=== PATIENT | female | born 1995 | race Caucasian/White ===

== ENCOUNTER 2016-06-20 09:49 | Emergency (ER) | payer MEDICAID, OTHER ==
[~2016-06-20] VITALS: Ht 165.1 cm; Wt 99.8 kg
[2016-06-20 09:56] VITALS: BP 144/70
--- NOTE | 2016-06-20 11:44 | NUR ---
PATIENT LEFT WITHOUT BEING SEEN BY DR. POWELL. NO FURTHER CARE PROVIDED FOR PATIENT.
== END 2016-06-20 11:44 | disposition left against medical advice (07) ==
LOC: MED 09:49
DX: J02.9 Acute pharyngitis, unspecified (principal); R50.9 Fever, unspecified; Z53.21 Procedure and treatment not carried out due to patient leaving prior to being seen by health care provider

== ENCOUNTER 2019-03-07 16:36 | Observation (INO) | payer MEDICAID, OTHER ==
[~2019-03-07] VITALS: Ht 170.2 cm; Wt 127.9 kg
[2019-03-07 16:41] VITALS: BP 134/95
--- NOTE | 2019-03-07 17:00 | NUR ---
STATES DEVELOPED SUDDEN ONSET LOWER ABDOMINAL PAIN/CRAMPING W/INTERMITTENT RADIAING PAIN TO BACK. STATES SHE RECENTLY TOOK A PREGANACY TEST WHICH CAME BACK POSITIVE. PT PT IS A0. HER LASTWAS NINE YEARS AGO AND WAS UNEVENTFUL. URINE OBTAINED AND DIPPPED FOR BHCG: POSITIVE. COMFORT MEASURES AND SUPPORTIVE CARE INITIATED. MSE COMPLETE. PT AGREES W/PLAN OF CARE.
--- NOTE | 2019-03-07 17:28 | NUR ---
LAB AT FOR BLOOD DRAW. NO FURTHER ORDERS AT THIS TIME.
[2019-03-07 17:30] LABS: BASOPHILS # (AUTO) 0.1 K/uL (0.00-0.22); BASOPHILS % (AUTO) 0.9 % (0.0-2.0); EOSINOPHILS # (AUTO) 0.2 K/uL (0-0.4); EOSINOPHILS % (AUTO) 2.4 % (0.0-4.0); HEMATOCRIT 34.8 % (36-48); HEMOGLOBIN 11.3 g/dL (12.0-16.0); LYMPHOCYTES # (AUTO) 1.4 K/uL (2.5-16.5); LYMPHOCYTES % (AUTO) 17.1 % (20.5-51.1); MEAN CORPUSCULAR HEMOGLOBIN 29 pg (27-31); MEAN CORPUSCULAR HGB CONC 32 g/dL (33-37); MEAN CORPUSCULAR VOLUME 88.3 fL (80-94); MONOCYTES # (AUTO) 0.4 K/uL (0.8-1.0); MONOCYTES % (AUTO) 5.2 % (1.7-9.3); NEUTROPHILS # (AUTO) 6.2 K/uL (1.8-7.7); NEUTROPHILS % (AUTO) 74.4 % (42.2-75.2); PLATELET COUNT (AUTO) 144 K/uL (140-450); RED BLOOD CELL COUNT(AUTO) 3.94 MIL/uL (4.20-5.40); RED CELL DISTRIBUTION WIDTH 13.9 % (11.6-13.7); WHITE BLOOD COUNT (AUTO) 8.3 K/uL (4.8-10.8)
[2019-03-07 17:30] LABS: APPEARANCE,URINE CLEAR (CLEAR); BILIRUBIN,URINE NEGATIVE (NEGATIVE); BLOOD, URINE TRACE-I (NEGATIVE); COLOR,URINE YELLOW (YELLOW); LEUKOCYTE ESTERASE ,URINE 1+ (NEGATIVE); NITRITE, URINE NEGATIVE (NEGATIVE); UGLUCOSE NEGATIVE (NEGATIVE)
--- NOTE | 2019-03-07 17:41 | NUR ---
ULTRASOUND AT BS.
[2019-03-07 17:49] LABS: RBC,URINE 0-5 /HPF (0-5)
--- NOTE | 2019-03-07 17:50 | NUR ---
ULTRASOUND REPORTED PT BEING 37WKS IUP WITH LOW AMNIOTIC FLUID; VERY POSSIBLE ACTIVE LABOR MD NOTIFIED, PT TO BE SEEN IN OB----- OB NURSE NOTIFIED; [facility] SRE[facility]HAR HERNANDEZ AND ELISE SMYTH
[2019-03-07 18:31] VITALS: BP 134/62
[2019-03-07] MEDS ORDERED: PREN-380 PO (18:41)
== END 2019-03-07 20:00 | disposition home or self-care (01) ==
LOC: MED 16:36 → MLD 17:50
PROVIDERS: ADMIT Obstetrics & Gynecology; ATTEND Obstetrics & Gynecology
DX: O62.9 Abnormality of forces of labor, unspecified (principal); O26.893 Other specified pregnancy related conditions, third trimester; R10.2 Pelvic and perineal pain; Z3A.38 38 weeks gestation of pregnancy; Z88.0 Allergy status to penicillin
CPT/HCPCS: 36415; 76805; 81001; 84702; 85025; 86900; 86901; 87086; 99284; G0378; Q0092

== ENCOUNTER 2019-03-08 04:25 | Inpatient (IN) | payer MEDICAID ==
[~2019-03-08] VITALS: Ht 170.2 cm; Wt 127.9 kg
[~2019-03-08 04:25] MED LIST: PREN-380 PO
[2019-03-08] MEDS ORDERED: TERBUTALINE 1 MG/ML VIAL SUBQ ONE (04:42)
[2019-03-08] MEDS ORDERED: LACTATED RINGERS 1,000 ML IV SCH (05:09)
[2019-03-08] MEDS ORDERED: NALBUPHINE 10 MG/ML AMP IVP PRN (05:10)
[2019-03-08] MEDS ORDERED: TERBUTALINE 1 MG/ML VIAL SUBQ SCH (05:20)
[2019-03-08] MEDS ORDERED: CLINDAMYCIN 900 MG in DEXTROSE 5% 100 ML IV SCH ×2 (05:30→13:00)
[2019-03-08 05:47] VITALS: BP 122/70
[2019-03-08] MEDS ORDERED: CLINDAMYCIN 900 MG/6 ML VIAL IV ONE (06:22)
[2019-03-08] MEDS: OXYTOCIN 20 UNITS in LACTATED RINGERS 1,000 ML IV SCH ×2 (06:45→22:40)
[2019-03-08 07:15] LABS: BARBITURATE, URINE NEG. ng/ml (NEG <=200); BENZODIAZEPINE, URINE NEG. ng/mL (NEG <=200); CANNABINOID, URINE POS. ng/mL (NEG <=50); COCAINE, URINE NEG. ng/mL (NEG <=300); OPIATE, URINE NEG. ng/mL (NEG <=2000); PHENCYCLIDINE SCREEN,URINE NEG. ng/mL (NEG <=25)
[2019-03-08 07:39] LABS: ALBUMIN 2.6 g/dL (3.4-5.0); ANION GAP 16.8 (8-16); CARBON DIOXIDE 20.2 mmol/L (21-32); CREATININE 0.7 mg/dL (0.6-1.3); TOTAL BILIRUBIN 0.3 mg/dL (0.0-1.0)
--- NOTE | 2019-03-08 08:22 | NUR ---
PATIENT HAS BEEN SCREENED AND CATEGORIZED LOW NUTRITION RISK. PATIENT WILL BE SEEN WITHIN 7 DAYS OF ADMISSION. 03/14/[address]
[2019-03-08] MEDS ORDERED: MORPHINE PRES FREE 10 MG/10 ML AMP IV ONE (10:28)
[2019-03-08] MEDS ORDERED: LEVOFLOXACIN 500 MG/D5W PREMIX 100 ML IV ONE (11:02)
[2019-03-08] MEDS ORDERED: KETOROLAC 30 MG/ML VIAL IVP PRN (11:35)
[2019-03-08] MEDS ORDERED: NALOXONE 0.4 MG/ML VIAL IVP PRN ×2 (11:35)
[2019-03-08] MEDS ORDERED: ONDANSETRON 4 MG/2 ML VIAL IVP PRN (11:35)
[2019-03-08] MEDS ORDERED: OXYTOCIN 20 UNITS in LACTATED RINGERS 1,000 ML IV SCH (11:35)
[2019-03-08] MEDS ORDERED: diphenhydrAMINE 50 MG/ML VIAL IVP PRN (11:35)
[2019-03-08] MEDS ORDERED: KCL 20 MEQ/WATER INJ PREMIX 200 ML IV SCH (12:00)
[2019-03-08] MEDS ORDERED: OXYTOCIN 20 UNITS/LR PREMIX 1,000 ML IV ONE ×2 (13:54→22:32)
[2019-03-08] MEDS ORDERED: HYDROmorphone 1 MG/ML AMP IVP PRN (15:00)
[2019-03-08] MEDS ORDERED: MEASLES, MUMPS, AND RUBELLA 1 VIAL SQVAC PRN (15:00)
[2019-03-08] MEDS ORDERED: SIMETHICONE 80 MG TAB.CHEW PO SCH (17:00)
[2019-03-09] MEDS ORDERED: LEVOFLOXACIN 500 MG/D5W PREMIX 100 ML IV SCH (09:00)
[2019-03-09] MEDS: DOCUSATE SODIUM 100 MG GELCAP PO SCH (09:27)
[2019-03-09] MEDS: BISACODYL 5 MG TABEC PO SCH (09:27)
[2019-03-09] MEDS ORDERED: KETOROLAC 30 MG/ML VIAL IVP PRN (12:00)
[2019-03-09 12:54] LABS: BASOPHILS % (AUTO) 0.3 % (0.0-2.0); EOSINOPHILS # (AUTO) 0.1 K/uL (0-0.4); EOSINOPHILS % (AUTO) 1.6 % (0.0-4.0); HEMATOCRIT 30.6 % (36-48); LYMPHOCYTES # (AUTO) 0.8 K/uL (2.5-16.5); LYMPHOCYTES % (AUTO) 11.8 % (20.5-51.1); MEAN CORPUSCULAR HEMOGLOBIN 29 pg (27-31); MEAN CORPUSCULAR HGB CONC 33 g/dL (33-37); MEAN CORPUSCULAR VOLUME 88.6 fL (80-94); MONOCYTES # (AUTO) 0.4 K/uL (0.8-1.0); MONOCYTES % (AUTO) 6.4 % (1.7-9.3); NEUTROPHILS # (AUTO) 5.1 K/uL (1.8-7.7); NEUTROPHILS % (AUTO) 79.9 % (42.2-75.2); PLATELET COUNT (AUTO) 123 K/uL (140-450); RED BLOOD CELL COUNT(AUTO) 3.46 MIL/uL (4.20-5.40); RED CELL DISTRIBUTION WIDTH 14.1 % (11.6-13.7); WHITE BLOOD COUNT (AUTO) 6.5 K/uL (4.8-10.8)
[2019-03-09] MEDS ORDERED: ACETAMINOPHEN 325 MG TAB PO PRN (23:00)
[2019-03-10] MEDS: IBUPROFEN 600 MG TAB PO PRN ×2 (08:24→18:36)
[2019-03-10] MEDS: DOCUSATE SODIUM 100 MG GELCAP PO SCH (08:24)
[2019-03-10] MEDS: BISACODYL 5 MG TABEC PO SCH (08:24)
[2019-03-10] MEDS: SIMETHICONE 80 MG TAB.CHEW PO SCH (08:25)
[2019-03-10] MEDS ORDERED: BISACODYL 5 MG TABEC PO SCH (09:00)
[2019-03-10] MEDS ORDERED: DOCUSATE SODIUM 100 MG GELCAP PO SCH (09:00)
[2019-03-10] MEDS ORDERED: SODIUM PHOSPHATE 118 ML ENEM RC PRN (09:00)
[2019-03-11] MEDS ORDERED: INFLUENZA VACCINE QUAD 0.5 ML SYR IMVAC PRN (02:25)
[2019-03-11] MEDS ORDERED: INFLUENZA VACCINE QUAD 0.5 ML SYR IMVAC ONE (02:29)
[2019-03-11] MEDS: SIMETHICONE 80 MG TAB.CHEW PO SCH ×2 (09:06→13:10)
[2019-03-11] MEDS: BISACODYL 5 MG TABEC PO SCH (09:07)
[2019-03-11] MEDS: IBUPROFEN 600 MG TAB PO PRN (09:07)
[2019-03-11] MEDS: DOCUSATE SODIUM 100 MG GELCAP PO SCH (09:07)
--- NOTE | 2019-03-11 15:42 | NUR ---
Gas Plumber Note: I was informed by patient's nurse Lavern patient's and baby's urine drug screen was positive for marijuana. Per Lavern, CPS report was completed by RN. I met with patient at bedside. Patient alert and oriented x4. Patient stated she knew she was , however, she thought she was less weeks . She admitted smoking marijuana and told me she did not know she was at that time. She is aware CPS report was made and is planning to be cooperative with SW from CPS. She denied having an open case with CPS. She denied hx of mental health or illicit drug use. She is planning to follow up with MD post discharge and also to follow up with MD for baby. Patient lives with significant other and stated he is supportive. Patient was pleasant and cooperative. No concerns were identified, MARY Puckett made aware.
== END 2019-03-11 16:15 | disposition home or self-care (01) | DRG 540 ==
LOC: OBSVTOIN 04:25 → MLD 04:25 → MFCC 11:06 → UNDODISIN 18:40
PROVIDERS: ADMIT Obstetrics & Gynecology; ATTEND Obstetrics & Gynecology
PROC: 10D00Z1 Extraction of Products of Conception, Low, Open Approach (ICD-10-PCS; principal; 2019-03-08 10:30)
PROC: 3E0234Z Introduction of Serum, Toxoid and Vaccine into Muscle, Percutaneous Approach (ICD-10-PCS; 2019-03-11)
PROC: 3E0134Z Introduction of Serum, Toxoid and Vaccine into Subcutaneous Tissue, Percutaneous Approach (ICD-10-PCS; 2019-03-11)
DX: O32.1XX0 Maternal care for breech presentation, not applicable or unspecified (principal); E66.01 Morbid (severe) obesity due to excess calories; O34.211 Maternal care for low transverse scar from previous cesarean delivery; O77.0 Labor and delivery complicated by meconium in amniotic fluid; O99.824 Streptococcus B carrier state complicating childbirth; O99.214 Obesity complicating childbirth; Z37.0 Single live birth; Z3A.38 38 weeks gestation of pregnancy; Z23 Encounter for immunization
CPT/HCPCS: 36415; 51702; 76815; 80053; 80305; 85025; 86592; 86762; 86886; 86900; 86901; 87340; 87653-90; 90707; 90715; J1885; J1956; J2270; J2300; J2590; J3105; J3480; J3490; J7060; J7120; Q0092